=== PATIENT | male | born 1950 | race Caucasian/White ===

== ENCOUNTER 2019-08-26 10:44 | Emergency (ER) | payer BC ==
--- OUTSIDE RECORDS SUMMARY | 2019-08-26 10:53 | XMS REPORT | Continuity of Care Document ---
:1950 External Reference #:[id number] Author Name Grisel Guerin MD (transmitted by agent of provider Nargis ANN) Address [address] [place] [id number] Care Team Providers Name Role Phone SalvadorwagnerLucille - Gastroenterology Care Team Information Plug Saw Operator Mane Salgado DR - Care Team Information Plug Saw Operator [phone] Rheumatology Jose Carrero MD Care Team Information Plug Saw Operator [phone] Problems Active Problems Provider Date Impaired fasting glycaemia Grisel Guerin MD Onset: 04/01/2014 Family history of malignant neoplasm of Grisel Guerin MD Onset: 2013 gastrointestinal tract Benign neoplasm of colon Grisel Guerin MD Onset: 04/01/2014 Cobalamin deficiency Grisel Guerin MD Onset: 09/24/2013 Vitamin D deficiency Grisel Guerin MD Onset: 09/24/2013 Gastroesophageal reflux disease Grisel Guerin MD Onset: 09/24/2013 Benign essential hypertension Grisel Guerin MD Onset: 09/24/2013 Mixed hyperlipidemia Grisel Guerin MD Onset: 09/24/2013 Obstructive sleep apnea syndrome Grisel Guerin MD Onset: 09/24/2013 Heartburn Grisel Guerin MD Onset: 09/24/2013 Hyperlipidemia Onset: 12/23/2007 Gout Onset: 12/23/2007 Obesity Onset: 12/23/2007 Essential hypertension Grisel Guerin MD Onset: 05/05/2015 Vitamin B-complex deficiency Grisel Guerin MD Onset: 05/05/2015 Sleep apnea Grisel Guerin MD Onset: 05/05/2015 Bariatric surgery status Grisel Guerin MD Onset: 05/05/2015 Sleep apnea Grisel Guerin MD Onset: 07/15/2016 Family history of ischemic heart disease and Grisel Guerin MD Onset: other diseases of the circulatory system 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 Grisel Guerin MD Onset: 2019 angina pectoris Right bundle branch block Grisel Guerin MD Onset: 08/12/2019 Social History Type Date Description Comments Sex Unknown ETOH Use Occasionally consumes alcohol Tobacco Use Start: Unknown Patient has never smoked Recreational Drug Use Denies Drug Use Smoking Status Reviewed: 04/02/19 Patient has never smoked Exercise Type/Frequency 04/01/2014 Exercises sporadically feels he gets in over 10k steps a day at work; 09/24/2013 counselled 10k steps per day or 150min per week ; 04/01/2014 again counselled Allergies, Adverse Reactions, Alerts Active Allergies Reaction Severity Comments Date Penicillin 07/14/2014 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 05/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 Medications Active Medications SIG Qnty Indications Ordering Provider Date Aspirin 81 Low Dose 1 by mouth 30units I25.10 Grisel Guerin, 08/12/2019 every day daily 81mg Chewtabs with food E78.2 Rosuvastatin Calcium 1 by mouth every 90tabs E78.2 Grisel Guerin MD 5mg day Tablets I25.10 Lansoprazole 1 by mouth daily 90caps K21.9 Grisel Guerin MD 04/01/2014 30mg and as needed Capsules DR 30min before a meal, pt taking every 3 days Lisinopril take 1 tablet by 100tabs I10 Grisel Guerin MD 04/01/2014 10mg Tablets mouth every morning Vitamin B-12 1 po qd 90tabs E53.8 Grisel Guerin MD 09/24/2013 1000mcg Tablets Sub Vitamin D3 2 by mouth daily 30tabs E55.9 Grisel Guerin MD 09/24/2013 1000Unit with dinner with Tablets meat fat oil Calcium 1 po bid with E55.9 Grisel Guerin MD 09/24/2013 Carbonate-Vitamin D meal [id number] Tablets Allopurinol take 1 tablet by 100tabs M10.9 Grisel Guerin MD 300mg Tablets mouth once daily Immunizations CPT Code Status Date Vaccine Reaction Lot # [id number] Given 02/09/2019 Flu Vaccine NOS 77736 Given 02/09/2019 Influenza Vac, Quadrivalent, Split, 0.5mL Dosage, Im Use Q2039 Given 02/17/2018 Flu Vaccine NOS given at work 28331 Given 08/25/2017 Pneumococcal 23 Immunization [id number] Adult Or Immunosuppressed Patient 86317 Given 07/15/2016 Prevnar 13 Pneumococal Im inj completed, Pt [id number] Conjugate Vaccine tolerated well Q2037 Given 05/21/2015 Fluvirin Immunization 98749 Given 2013 Afluria Or Fluvirin Flu Vac Intramuscular 42650 Given 09/20/2012 Tdap (Adacel) Ages 7 And Above Only 16844 Given 06/22/2000 Pneumococcal 23 Immunization Adult Or Immunosuppressed Patient 80253 Refused 04/02/2019 Shingrix (Shingles) Zoster Vaccine HZV, Recombinant , Subunit, Adj 51986 Refused 10/05/2018 Shingrix (Shingles) Zoster Vaccine HZV, Recombinant , Subunit, Adj 79552 Refused 03/12/2018 Shingrix (Shingles) Zoster Vaccine HZV, Recombinant , Subunit, Adj Q2039 Refused 08/25/2017 Flu Vaccine NOS 94650 Refused 07/15/2016 Zoster (Zostavax) 52924 Refused 07/15/2016 Influenza Virus Vaccine,Quadrivalent,Split,Preserv Free, 0.5mL,[place] [address] Refused 05/05/2015 Zoster (Zostavax) 53579 Refused 05/05/2015 Influenza Virus Vaccine,Quadrivalent,Split,Preserv Free, 0.5mL,[place] [address] Refused 11/12/2014 Zoster (Zostavax) Vital Signs Date Vital Result Comment 08/12/2019 8:24am Weight 230.00 lb Heart Rate 60 /min Height 66.5 inches 5'6.50" BMI (Body Mass Index) 36.6 kg/m2 04/02/2019 3:11pm Weight 230.00 lb Heart Rate 60 /min BP Systolic 130 mmHg BP Diastolic 78 mmHg Respiratory Rate 16 /min Height 66.5 inches 5'6.50" BMI (Body Mass Index) 36.6 kg/m2 Results Test Acquired Date Facility Test Result H/L Range Note Lipid 03/05/2019 [facility] Cholesterol 157 mg/dL 50-199 1 Triglycerides 139 mg/dL 30-200 HDL 29 mg/dL 29-71 2 Chol/ HDL Ratio 5.4 ratio 4.0-6.7 VLDL 28 mg/dL 2-29 LDL (Calc) 100 mg/dL High 20-99 3 Comprehensive Met Panel-[facility] 03/05/2019 [facility] Sodium 140 mmol/L 135- 146 4 Potassium 3.8 mmol/L 3.5-5.2 Chloride# 105 mmol/L 97-110 5 Carbon Dioxide 28 mmol/L 24-34 Calcium 9.4 mg/dL 8.5-10.5 6 Glucose 133 mg/dL High 70-105 BUN 18 mg/dL 6-26 Creatinine 1.1 mg/dL 0.5-1.4 Total Protein 7.1 g/dL 6.0-8.0 Albumin 4.1 g/dL 3.6-4.9 Globulin 3.0 g/dL 2.0-3.5 A/G Ratio 1.4 Ratio 1.0-2.2 Total Bilirubin 0.6 mg/dL 0.1-1.3 Alkaline Phosphatase 83 U/L 24-140 Alt 21 U/L 3-42 Ast 25 U/L 8-42 Anion Gap 7 mmol/L 5-15 7 Female Egfr 52 Low >60 8 Male Egfr 70 >60 9 Laboratory test finding 03/05/2019 [facility] Uric Acid 8.5 mg/dL High 2.6- 8.4 PSA 2.210 ng/mL 0.000-4.000 10 CBC with Auto Diff-[facility]cmg 03/05/2019 [facility] WBC 5.2 K/uL 4.1-11.0 RBC 4.25 M/uL Low 4.60-6.10 Hemoglobin 14.2 gm/dL 13.5-18.0 Hematocrit 40.8 % Low 41.0-53.0 MCV 96.0 fL 80.0-97.0 MCH 33.5 pg High 27.0-32.0 MCHC 34.9 g/dL 32.0-36.0 RDW 12.9 % 11.5-14.5 PLT Count 213 K/ul 140-400 MPV 8.5 FL 7.1-10.7 Neutrophil 63.8 % 35.0-75.0 Lymphocyte 22.9 % 16.0-52.0 Monocyte 9.8 % 2.0-10.0 Eosinophil 3.0 % 0.0-5.0 Basophil 0.5 % 0.0-4.0 Abs Neutrophils 3.3 K/uL 2.1-8.0 Abs Lymphocytes 1.2 K/uL 0.8-5.5 Abs Monocytes 0.5 K/uL 0.1-1.0 Abs Eosinophils 0.2 K/uL 0.0-0.5 Abs Basophils 0.0 K/uL 0.0-0.3 1 b4 visit 09/2018 2 Per NCEP ATP III Guidelines: Results lower than 40 mg/dL are suggestive of increased risk for coronary artery disease. Results > or = to 60 mg/dL are considered a negative risk factor. 3 Per NCEP ATP III Guidelines: Normal Population <130 Patients with medical conditions: CHD/DM Optimal: <100 Borderline high: 130-159 High: 160-189 Very high: >189 4 Updated reference range on new analyzer 5 Updated reference range on new analyzer 6 Updated reference range 09-19-2018 7 Updated Reference Range 8 Concerning GFR Guidelines for Americans: Normal function or mild renal disease, if clinically at risk: >/= 60 mL/min Moderately decreased: 30-59 Severely decreased: 15-29 Renal failure: <15 There is reduced accuracy above 60ml/min/1.73 m squared, but the numeric value may be clinically useful in the near 60 range 9 Concerning GFR Guidelines: Normal function or mild renal disease, if clinically at risk: >/= 60 mL/min Moderately decreased: 30-59 Severely decreased: 15-29 Renal failure: <15 There is reduced accuracy above 60ml/min/1.73 m squared, but the numeric value may be clinically useful in the near 60 range Glomerular Filtration Rate (GFR) is estimated based on the CKD-EPI equation, which assumes a steady state for creatinine as recommended by the National Kidney Disease Education Program in conjunction with the National Institutes of Health and the National Kidney Foundation. Clinical conditions in which it may be necessary to measure GFR by using clearance methods include extremes of age and body size, severe malnutrition or obesity, diseases of skeletal muscle, paraplegia or quadriplegia, vegetarian diet, rapidly changing kidney function, and calculation of the dose of potentially toxic drugs that are excreted by the kidneys. 10 Beginning 07/17/06 PSA values assayed at [facility] uses chemiluminescence methodology manufactured by [employer] for use on the DXI analyzer. Values obtained with different assay methods or kits can not be used interchangeably. Serum PSA measurement is not an absolute test for malignancy. The PSA value should be used in conjunction with information available from clinical evaluation and other diagnostic procedures. Procedures Date Code Description Status 08/24/2017 [id number] Colonoscopy Completed 06/15/2015 [id number] Diabetic Retinal Eye Exam Completed Medical Devices Description No Information Available Encounters Type Date Location Provider Dx Diagnosis Office Visit 08/12/2019 [facility] Grisel Guerin MD I25.10 Athscl heart disease 8:30a of [place] coronary artery w/o ang pctrs E78.2 Mixed hyperlipidemia I10 Essential (primary) hypertension I45.19 Other RIGHT bundle-branch block E66.01 Morbid (severe) obesity due to excess calories Z71.89 Other specified counseling Z68.36 Body mass index (BMI) 36.0-36.9, adult Office Visit 04/02/2019 3:00p [facility] Grisel Guerin MD Z00.01 Encounter for general adult medical exam w abnormal findings I10 Essential (primary) hypertension E78.2 Mixed hyperlipidemia M10.9 Gout, unspecified R73.01 Impaired fasting glucose E53.8 Deficiency of other specified B group vitamins G47.30 Sleep apnea, unspecified K21.9 Gastro-esophageal reflux disease without esophagitis Z12.5 Encounter for screening for malignant neoplasm of prostate E66.01 Morbid (severe) obesity due to excess calories Z82.49 Family hx of ischem heart dis and oth dis of [facility] Z13.31 Encounter for screening for depression Z80.0 Family history of malignant neoplasm of digestive organs N40.0 Benign prostatic hyperplasia without lower urinry tract symp Z98.84 Bariatric surgery status Z68.36 Body mass index (BMI) 36.0-36.9, adult Assessments Date Code Description Provider 08/12/2019 I25.10 Atherosclerotic heart disease of [place] Grisel Guerin MD coronary artery without angina pectoris 08/12/2019 E78.2 Mixed hyperlipidemia Grisel Guerin MD 08/12/2019 I10 Essential (primary) hypertension Grisel Guerin MD 08/12/2019 I45.19 Other RIGHT bundle-branch block Grisel Guerin MD 08/12/2019 E66.01 Morbid (severe) obesity due to excess calories Grisel Guerin MD 08/12/2019 Z71.89 Other specified counseling Grisel Guerin MD 08/12/2019 Z68.36 Body mass index (BMI) 36.0-36.9, adult Grisel Guerin MD 04/02/2019 Z00.01 Encounter for general adult medical Grisel Guerin MD examination with abnorma 04/02/2019 I10 Essential (primary) hypertension Grisel Guerin MD 04/02/2019 E78.2 Mixed hyperlipidemia Grisel Guerin MD 04/02/2019 M10.9 Gout, unspecified Grisel Guerin MD 04/02/2019 R73.01 Impaired fasting glucose Grisel Guerin MD 04/02/2019 E53.8 Deficiency of other specified B group vitamins Grisel Guerin MD 04/02/2019 G47.30 Sleep apnea, unspecified Grisel Guerin MD 04/02/2019 K21.9 Gastro-esophageal reflux disease without Grisel Guerin MD esophagitis 04/02/2019 Z12.5 Encounter for screening for malignant neoplasm Grisel Guerin MD of prostate 04/02/2019 E66.01 Morbid (severe) obesity due to excess calories Grisel Guerin MD 04/02/2019 Z82.49 Family history of ischemic heart disease and Grisel Guerin MD other diseases 04/02/2019 Z13.31 Encounter for screening for depression Grisel Guerin MD 04/02/2019 Z80.0 Family history of malignant neoplasm of Grisel Guerin MD digestive organs 04/02/2019 N40.0 Benign prostatic hyperplasia without lower Grisel Guerin MD urinary tract sym 04/02/2019 Z98.84 Bariatric surgery status Grisel Guerin MD 04/02/2019 Z68.36 Body mass index (BMI) 36.0-36.9, adult Grisel Guerin MD 03/05/2019 E78.2 Mixed hyperlipidemia Grisel Guerin MD 03/05/2019 E78.2 Mixed hyperlipidemia Schedule, Laboratory 03/05/2019 M10.9 Gout, unspecified Grisel Guerin MD 03/05/2019 M10.9 Gout, unspecified Schedule, Laboratory 03/05/2019 Z12.5 Encounter for screening for malignant neoplasm Grisel Guerin MD of prostate 03/05/2019 Z12.5 Encounter for screening for malignant neoplasm Schedule, Laboratory of prostate 03/05/2019 I10 Essential (primary) hypertension Grisel Guerin MD 03/05/2019 I10 Essential (primary) hypertension Schedule, Laboratory 03/05/2019 E78.2 Mixed hyperlipidemia [facility] 03/05/2019 M10.9 Gout, unspecified [facility] 03/05/2019 Z12.5 Encounter for screening for malignant neoplasm [facility] of prostate 03/05/2019 I10 Essential (primary) [facility] Plan of Treatment Future Appointment(s):10/08/2019 1:00 pm - Grisel Guerin MD at [facility]2019 7:55 am - Schedule, Laboratory at [facility]08/12/2019 - Grisel Guerin MDI25.10 Atherosclerotic heart disease of [place] coronary artery without angina pectorisNew Medication:Aspirin 81 Low Dose 81 mg - 1 by mouth every day daily with foodRosuvastatin Calcium 5 mg - 1 by mouth every dayNew Orders:Stress Test- Exercise ECHO Myoview, Ordered: 08/12/19Comments:Coronary artery disease. Patient with an abnormal calcium ct score of 627 which suggests at severe atherosclerotic plaque and high risk for critical stenosis. Recommendations; treat for coronary artery disease. I do recommend stress testing due to score values, although he feels well and has no chest pain, or sob with exertion start aspirin 81mg chewable daily, he will delay until covid crisis is more stable and routine testings are being done start rosuvastatin 5mg, build as tolerated, see discssuion below cautioned risks for muscle aches and liver effects. Discussed that betablocker and ACEI/ARB are recommended as well, he is also already on lisinopril Discussed option of referral to ore dressing engineer for additional opinion ( when covid crisis), he declines. Encouraged continued healthy diet modified in fat and cholesterol with regular daily exercise. Call for symptoms of chest pressure, paintightness, at rest or with exertion, or increasing SOB/developing poor exercise intolerance. Call for concerns. HO printed to send with copy of reportFollow up:fu as planned , send [facility] mail, to [facility] bin schedule stress test in 3 mo send ekg with hrgdfT03.2 Mixed hyperlipidemiaNew Medication:Aspirin 81 Low Dose 81 mg - 1 by mouth every day daily with foodRosuvastatin Calcium 5 mg - 1 by mouth every dayComments:high cholpt with CT calcium score of 627, willing to start statins. Guidelines recommend high intensity statin therapy to reduce LDL by 50%, adding zetia if not to goal. Ho myopathy, on atorvastatin ckwent ot 800 but was working hard at the time. Recommend: start low rosuvastatin 5mg, recheck labs asplanned on 09/25, sooner if gets myopathy sxs/muscle aches. Purpose is to reduce the risks for heart attack and stroke. Start rosuvastatin 5mg daily. cautioned risks for muscle aches and liver effects. Advised if covid crisis continues and we can not safely check labs it may be best to stop meds if getsmuscle aches. Aspirin 81mg daily is also recommended, chewable, take with food. For lifestyle, we also recommend: Low fat ( under 30gm per day), low chol diet ( under 300mg per day chol)focus on lean meat, nonfat 1% dairy, increased veg and fruit, whole grains weight lossexercise build to at least 30min per day. Reviewed signs and symptoms of cardiovascular disease.I10 Essential ( primary) hypertensionNew Orders:Stress Test-Exercise ECHO Myoview, Ordered: I45.19 Other RIGHT bundle-branch blockNew Orders:Stress Test-Exercise ECHO Myoview, Ordered: 08/12/19E66.01 Morbid (severe) obesity due to excess caloriesComments:continue to work on diet, exercise, weight lossZ71.89 Other specified counselingComments:COVID19 counseling Age over 60, higher risk age groupRecommend isolation, avoiding groups. Have someone get groceries, wipe them down. Call if ill.Z68.36 Body mass index (BMI) 36.0-36.9, adultComments: work on healthy reduced calorie diet and regular exercise Functional Status Description No Information Available Mental Status Description No Information Available Referrals Description No Information Available
[2019-08-26 10:59] VITALS: BP 162/88
--- NOTE | 2019-08-26 11:07 | UC ---
Lower Extremity/Ankle HPI - HPI Summary HPI Summary: 69yo male presenting with "pain in the ball of the right foot" since this morning when he stepped up and "felt a snap." States at first the pain radiated up his right calf but that is gone now. States it only hurts to bear weight and walk on. Denies any bruising or swelling. Denies numbness and tingling. Denies prior injury to the foot other than 3 weeks ago when he states he fell and "either sprained or broke his pinky toe." States the toe is "mostly feeling better now." - History of Current Complaint Stated Complaint: RIGHT FOOT Hx Obtained From: Patient Pain Intensity: 7 - Allergies/Home Medications Allergies/Adverse Reactions: Allergies Allergy/AdvReac Type Severity Reaction Status Date / Time Penicillins Allergy See Comment Verified 08/26/19 10:52 Home Medications: Home Medications Allopurinol TAB* [Zyloprim 100 MG TAB*] 100 mg PO DAILY 04/30/16 [History Confirmed 08/26/19] lisinopriL [Lisinopril 2.5 MG-] 2.5 mg PO DAILY 04/30/16 [History Confirmed 11/08] Aspirin 81 mg CHEW TAB* [Aspirin Low Dose TAB*] 81 mg PO DAILY 08/26/19 [ History Confirmed 08/26/19] Rosuvastatin Calcium [Crestor] 5 mg PO DAILY 08/26/19 [History Confirmed ] PMH/Surg Hx/FS Hx/Imm Hx - Surgical History Surgical History: Yes Surgery Procedure, Year, and Place: appy. tonsils, gastric bypass. hernia 2019. shoulder reconstruction- 06/2018 - Social History Alcohol Use: Rare Substance Use Type: None Smoking Status (MU): Never Smoked Tobacco Review of Systems All Other Systems Reviewed And Are Negative: No Constitutional: Positive: Negative Skin: Positive: Negative. Negative: Bruising Respiratory: Positive: Negative Cardiovascular: Positive: Negative Neurovascular: Positive: Negative Musculoskeletal: Positive: Arthralgia - "ball of right foot and right pinky toe ". Negative: Decreased ROM, Edema Neurological/Mental Status: Positive: Negative. Negative: Paresthesia, Numbness Physical Exam - Summary Physical Exam Summary: Vital Signs Reviewed: Yes A+Ox3, no distress Eyes: Conjunctiva Clear ENT: Hearing grossly normal neck: supple Respiratory: Positive: No respiratory distress, No accessory muscle use Cardiovascular: skin color reflect adequate perfusion, cap refill <2sec Musculoskeletal Exam: mild TTP of right small toe, no TTP of the forefoot, no edema, no erythema or ecchymosis, sensation grossly intact Neurological: Positive: Alert, ambulatory with some pain Psychological: Positive:age appropriate behavior Skin: Positive: no rash, no ecchymosis Vital Signs: Initial Vital Signs Temp 97.6 F 08/26/19 10:54 Pulse 63 08/26/19 10:54 Resp 19 08/26/19 10:54 BP 162/88 08/26/19 10:54 Pulse Ox 97 08/26/19 10:54 Diagnostics - Radiology right foot Radiology Interpretation Completed By: Radiologist Summary of Radiographic Findings: Indication: Right foot pain. Lateral foot pain 3 views of the right foot are reviewed. Hallux valgus deformity is noted. There is a fracture at the proximal and of the proximal phalanx of the fifth digit. No significant displacement is noted. IMPRESSION: Fracture proximal end proximal phalanx of the fifth digit. Lower Extremity Course/Dx - Course Course Of Treatment: Discussed small toe fracture with patient and likely strain of arch causing pain today. I provided with post op shoe and instructed to continue with symptomatic treatment. I provided with referral for orthopedics for follow up. Patient voiced understanding and agreed with treatment plan. - Differential Dx/Diagnosis Differential Diagnosis/HQI/PQRI: Arthritis, Contusion, Fracture (Closed), Sprain , Strain, Tendonitis Provider Diagnosis: Arch pain of right foot, Closed fracture of proximal phalanx of toe of right foot Discharge ED - Sign-Out/Discharge Documenting (check all that apply): Patient Departure All imaging exams completed and their final reports reviewed: Yes - Discharge Plan Condition: Stable Disposition: HOME Patient Education Materials: Toe Fracture (ED) Referrals: Grisel Guerin MD [Primary Care Provider] - Emeterio Gutierrez MD [Medical Doctor] - Additional Instructions: As discussed, your xrays revealed a fracture of your pinky toe. No other findings were noted. Wear the post op shoe to help alleviate pain while walking. Rest, ice, and elevate the foot. You may take over the counter pain medication as directed. Follow up with the orthopedic referral listed below for further evaluation of arch pain and to make sure the toe is healing well. - Billing Disposition and Condition Condition: STABLE Disposition: Home - Attestation Statements Provider Attestation: This patient was not seen by me. I was available for consult. Chart reviewed. WIL
== END 2019-08-26 12:08 | disposition home or self-care (01) ==
LOC: UCCORT 10:44
DX: M79.671 Pain in right foot (principal); S92.514A Nondisplaced fracture of proximal phalanx of right lesser toe(s), initial encounter for closed fracture; X58.XXXA Exposure to other specified factors, initial encounter; Y93.89 Activity, other specified; Y92.9 Unspecified place or not applicable; Z88.0 Allergy status to penicillin
CPT/HCPCS: 99202; G0463